=== PATIENT | female | born 1990 | race Caucasian/White ===

== ENCOUNTER → 2016-12-03 | Outpatient (CLI) | payer OTHER ==
[~2016-12-03] MED LIST: ACET50TA PO; PRENTAB40 PO; TYLE325T5 PO
--- NOTE | 2016-12-04 10:09 | REP ---
MRI LUMBAR SPINE WITHOUT CONTRAST: HISTORY: Low back pain bilateral leg pain, left greater than right. No known injury. Comparison radiographs September 30, 2016. TECHNIQUE: Sagittal and axial T1 and T2-weighted scans are acquired in the usual fashion with and without fat saturation. Sequences include spin echo, turbo spin-echo, and STIR imaging sequences. MRI FINDINGS: Lumbar vertebral body heights are preserved and alignment is normal. There is a small benign hemangioma in the L1 vertebral body, 9 mm in greatest diameter. Conus medullaris is normal in position and appearance at the T12-L1 disc level. Cortical and medullary bone signal intensity are otherwise normal. Disc spaces are maintained in height and signal intensity at all lumbar levels. No extra vertebral abnormality is appreciated. No disc herniation is seen at any lumbar level. No central canal stenosis is noted. No neural foraminal narrowing is seen. There is no evidence of spondylolysis or spondylolisthesis. IMPRESSION: Unremarkable MRI study of the lumbar spine. Signed by Jayce Hammond MD 12/04/2016 11:03 A
== END | disposition home or self-care (01) ==
LOC: M RAD 09:14
PROVIDERS: ATTEND Physician Assistant
DX: M54.5 Low back pain (principal)

== ENCOUNTER → 2017-01-04 | Outpatient (CLI) | payer OTHER ==
--- NOTE | 2017-01-04 19:08 | REP ---
AP AND LATERAL CERVICAL SPINE, THREE VIEWS: HISTORY: Injury. There is no acute fracture or subluxation. The intervertebral discs are normal in height. IMPRESSION: There is no acute fracture or subluxation. Signed by Jamey Felix MD 01/04/2017 07:16 P
== END ==
LOC: M ADAMS 16:19
PROVIDERS: ATTEND Physician Assistant
DX: S17.8XXA Crushing injury of other specified parts of neck, initial encounter (principal); W18.30XA Fall on same level, unspecified, initial encounter; Y92.009 Unspecified place in unspecified non-institutional (private) residence as the place of occurrence of the external cause

== ENCOUNTER → 2017-04-11 | Outpatient (REF) | payer OTHER ==
[2017-04-11 14:13] LABS: DIFF SLIDE NUMBER 307; MEAN CORPUSCULAR HEMOGLOBIN 31.6 pg (27.0-33.0); MEAN CORPUSCULAR HGB CONC 34.4 g/dl (32.0-36.5); MEAN CORPUSCULAR VOLUME 91.9 fl (80.0-96.0); PLATELET COUNT, AUTOMATED 204 k/mm3 (150-450); RED CELL DISTRIBUTION WIDTH 11.8 % (11.5-14.5); WHITE BLOOD COUNT 4.4 K/mm3 (4.0-10.0)
[2017-04-11 14:14] LABS: ANION GAP 7 MEQ/L (8-16); BLOOD UREA NITROGEN 10 MG/DL (7-18); CALCIUM LEVEL 8.7 MG/DL (8.5-10.1); CARBON DIOXIDE LEVEL 25 MEQ/L (21-32); CHLORIDE LEVEL 103 MEQ/L (98-107); GLOMERULAR FILTRATION RATE > 60.0 (>60); GLUCOSE, FASTING 102 MG/DL (70-105); POTASSIUM SERUM 3.6 MEQ/L (3.5-5.1); SODIUM LEVEL 135 MEQ/L (136-145)
[2017-04-11 14:36] LABS: BANDS 3 % (< 11); EOSINOPHILS 3 % (0-5)
[2017-04-11 14:37] LABS: ANISOCYTOSIS 1+
== END ==
LOC: M LAB REF 13:34
PROVIDERS: ATTEND Nurse Practitioner Family
DX: R51 Headache (principal)

== ENCOUNTER → 2017-04-18 | Outpatient (CLI) | payer OTHER | LOC: M RAD 16:00 | PROVIDERS: ATTEND Nurse Practitioner Family | DX: R51 Headache (principal) ==

== ENCOUNTER → 2018-01-01 | Outpatient (REF) | payer OTHER | LOC: M LAB REF 13:52 | DX: Z12.4 Encounter for screening for malignant neoplasm of cervix (principal) ==

== ENCOUNTER 2018-01-11 10:36 | Emergency (ER) | payer OTHER | END 2018-01-11 11:54 | disposition home or self-care (01) | LOC: M ED 10:36 | DX: H10.33 Unspecified acute conjunctivitis, bilateral (principal); J45.909 Unspecified asthma, uncomplicated; F17.200 Nicotine dependence, unspecified, uncomplicated; Z20.828 Contact with and (suspected) exposure to other viral communicable diseases; Z88.6 Allergy status to analgesic agent; Z88.8 Allergy status to other drugs, medicaments and biological substances; Z88.1 Allergy status to other antibiotic agents; Z88.0 Allergy status to penicillin; Z91.040 Latex allergy status; Z79.3 Long term (current) use of hormonal contraceptives | CPT/HCPCS: 99283 ==

== ENCOUNTER 2018-02-14 10:21 | Emergency (ER) | payer OTHER | END 2018-02-14 11:59 | disposition home or self-care (01) | LOC: M ED 10:21 | DX: S23.3XXA Sprain of ligaments of thoracic spine, initial encounter (principal); S23.41XA Sprain of ribs, initial encounter; W17.89XA Other fall from one level to another, initial encounter; Y92.89 Other specified places as the place of occurrence of the external cause; G57.01 Lesion of sciatic nerve, right lower limb; F17.200 Nicotine dependence, unspecified, uncomplicated; Z79.899 Other long term (current) drug therapy; Z88.8 Allergy status to other drugs, medicaments and biological substances; Z88.1 Allergy status to other antibiotic agents; Z91.040 Latex allergy status; Z88.0 Allergy status to penicillin | CPT/HCPCS: 71101 ==

== ENCOUNTER → 2018-03-22 | Outpatient (CLI) | payer MEDICAID | LOC: M RAD 13:06 | DX: M79.1 Myalgia (principal); M54.16 Radiculopathy, lumbar region; M47.817 Spondylosis without myelopathy or radiculopathy, lumbosacral region | CPT/HCPCS: 72148 ==

== ENCOUNTER 2018-04-19 12:35 | Emergency (ER) | payer MEDICAID | END 2018-04-19 14:36 | disposition home or self-care (01) | LOC: M ED 12:35 | DX: H69.92 Unspecified Eustachian tube disorder, left ear (principal); J45.909 Unspecified asthma, uncomplicated; M54.9 Dorsalgia, unspecified; F17.200 Nicotine dependence, unspecified, uncomplicated; Z88.6 Allergy status to analgesic agent; Z88.8 Allergy status to other drugs, medicaments and biological substances; Z88.1 Allergy status to other antibiotic agents; Z88.0 Allergy status to penicillin; Z91.040 Latex allergy status; Z79.899 Other long term (current) drug therapy; Z79.3 Long term (current) use of hormonal contraceptives | CPT/HCPCS: 99283 ==

== ENCOUNTER 2018-10-13 13:36 | Emergency (ER) | payer OTHER | END 2018-10-13 14:06 | disposition home or self-care (01) | LOC: M ED 13:36 | DX: M54.5 Low back pain (principal); V49.9XXA Car occupant (driver) (passenger) injured in unspecified traffic accident, initial encounter; Y92.410 Unspecified street and highway as the place of occurrence of the external cause; Y93.9 Activity, unspecified; Y99.9 Unspecified external cause status; R51 Headache; Z72.0 Tobacco use; Z79.899 Other long term (current) drug therapy; Z88.6 Allergy status to analgesic agent; Z88.8 Allergy status to other drugs, medicaments and biological substances; Z91.040 Latex allergy status; Z88.0 Allergy status to penicillin; Z88.1 Allergy status to other antibiotic agents | CPT/HCPCS: 99282 ==

== ENCOUNTER 2018-11-05 10:49 | Emergency (ER) | payer OTHER ==
[~2018-11-05] VITALS: Ht 162.6 cm; Wt 63.6 kg
[~2018-11-05 10:49] MED LIST changes: -ACET50TA PO; +CETI10TA PO; +CYCL10TA PO; +FLON1SPR NARES; +HYDR-3713 PO; +LEVO500T3 PO; +MAPA500T2 PO; +POLY2.5S OP; +ROBA500T PO; +SUMA25TA3 PO; +TIZA2TA PO; +TRINTAB; +ULTR50TA8 PO; +VENL37.598; +XULA1DIS
--- NOTE | 2018-11-05 12:47 | REP ---
EMERGENCY FIRST TRIMESTER OBSTETRIC SONOGRAPHY: HISTORY: Pelvic pain. Positive test. FINDINGS: Transabdominal and transvaginal scanning are performed. There is an intrauterine gestational sac containing a yolk sac but no identifiable embryonic pole. By mean sac size diameter of 9.5 mm, this would correspond with a 3-sjze-7-day gestational age estimate. Uterine dimensions are 9.0 x 4.8 x 5.3 cm. The right ovary is normal measuring 3.4 x 2.1 x 2.3 cm. Its Doppler flow is normal, resistive index is 0.58. Left ovary dimensions are 3.7 x 4.2 x 3.4 cm. It contains a 3.1 x 2.4 x 2.7 cm complex hypoechoic cyst consistent with a hemorrhagic corpus luteum. No free fluid is seen in the cul-de-sac. IMPRESSION: Intrauterine gestational sac contains a yolk sac but no identifiable embryonic pole. viability cannot be confirmed. Clinical and possibly sonographic followup suggested. 3.1 cm hypoechoic cyst left ovary. Electronically Signed by Jayce Hammond MD 11/05/2018 07:24 P
[2018-11-05] MEDS ORDERED: MACR100C43 PO (13:34)
[2018-11-05 13:40] VITALS: BP 100/55
== END 2018-11-05 13:41 | disposition home or self-care (01) ==
LOC: M ED 10:49
DX: O99.89 Other specified diseases and conditions complicating pregnancy, childbirth and the puerperium (principal); N83.202 Unspecified ovarian cyst, left side; Z3A.01 Less than 8 weeks gestation of pregnancy; J45.909 Unspecified asthma, uncomplicated; O23.91 Unspecified genitourinary tract infection in pregnancy, first trimester

== ENCOUNTER → 2018-11-27 | Outpatient (CLI) | payer OTHER ==
[~2018-11-27] MED LIST changes: +MACR100C43 PO
[2018-11-27 12:24] LABS: BASO % 0.5 % (0.0-1.0); EOS # 0.1 10^3/uL (0.0-0.50); EOS % 1.5 % (0.0-3.0); HEMOGLOBIN 11.9 g/dl (12.0-15.5); LYMPH # 1.4 10^3/uL (1.5-6.5); LYMPH % 22.9 % (24.0-44.0); MEAN CORPUSCULAR HEMOGLOBIN 30.3 pg (27.0-33.0); MEAN CORPUSCULAR HGB CONC 33.1 g/dl (32.0-36.5); MEAN CORPUSCULAR VOLUME 91.6 fl (80.0-96.0); MONO # 0.4 10^3/uL (0.0-0.8); MONO % 6.6 % (0.0-5.0); NEUTROPHILS # 4.2 10^3/uL (1.8-7.7); NEUTROPHILS % 68.2 % (36.0-66.0); PLATELET COUNT, AUTOMATED 221 10^3/uL (150-450); RED BLOOD COUNT 3.93 10^6/uL (4.00-5.40); WHITE BLOOD COUNT 6.2 10^3/uL (4.0-10.0)
[2018-11-27 14:36] LABS: CHLAMYDIA DNA AMPLIFICATION NEGATIVE (NEGATIVE); GC DNA AMPLIFICATION NEGATIVE (NEGATIVE)
[2018-11-28 11:31] LABS: HIV 1&2 SCREEN CENTAUR NEGATIVE (NEGATIVE); RUBELLA IgG QUALITATIVE IMMUNE (IMMUNE)
== END ==
LOC: M WUC 10:42
PROVIDERS: ATTEND Specialist
DX: Z34.81 Encounter for supervision of other normal pregnancy, first trimester (principal); Z3A.08 8 weeks gestation of pregnancy

== ENCOUNTER 2018-12-14 14:18 | Emergency (ER) | payer OTHER ==
[~2018-12-14] VITALS: Ht 162.6 cm; Wt 65.9 kg
[2018-12-14 14:19] VITALS: BP 117/64
[2018-12-14] MEDS ORDERED: ZOFR4TAB16 PO (14:23)
[2018-12-14] MEDS ORDERED: ACETAMINOPHEN 325 MG TAB PO ONE (14:45)
[2018-12-14] MEDS ORDERED: METOCLOPRAMIDE 10 MG TAB PO ONE (14:45)
[2018-12-14] MEDS ORDERED: REGL10TA6 PO (15:36)
== END 2018-12-14 15:45 | disposition home or self-care (01) ==
LOC: M ED 14:18
DX: R11.2 Nausea with vomiting, unspecified (principal); F17.210 Nicotine dependence, cigarettes, uncomplicated

== ENCOUNTER → 2019-02-05 | Outpatient (CLI) | payer OTHER ==
[~2019-02-05] MED LIST changes: +REGL10TA6 PO; +ZOFR4TAB16 PO
--- NOTE | 2019-02-06 04:31 | REP ---
Clinical: Anatomical evaluation. Comparison: 11/05/2018 . Findings: Examination demonstrates a single live intrauterine in breech presentation. motion is identified by technologist. Placenta is noted posterior and grade grade zero without evidence for placenta previa or abruption. Amniotic fluid volume is normal. Cervix measures 3.7 cm in length and appears closed. No evidence for nuchal cord. Gestational age by LMP 18 weeks 0 days with LUCÍA 07/09/2019 . Gestational age by current measurements 19 weeks 0 days with LUCÍA 07/02/2019 . FHR equals 160 beats per minute. BPD 4.0 cm 18 weeks 2 days HC 15.5 cm 18 weeks 3 days AC 14.5 cm 19 weeks 6 days FL 3.0 cm 19 weeks 1 day HL 2.9 cm 19 weeks 3 days HC/AC ratio 1.07 Estimated weight 288 grams (> 97 percentile based on age by LMP). Anatomical assessment demonstrates normal structures including cranium, choroid plexus, cavum, cerebellum/posterior fossa, facial features, lungs, four-chamber heart/ventricular outflow tracts, diaphragm, stomach, cord insertion/three-vessel cord, kidneys/bladder, spine, and extremities. Impression: 1. Single live intrauterine in breech presentation demonstrating estimated weight greater than expected based on age by LMP. 2. Anatomical assessment is complete and normal. Electronically Signed by Azam Almeida MD 02/06/2019 04:22 A
== END ==
LOC: M RAD 15:33
PROVIDERS: ATTEND Specialist
DX: Z34.82 Encounter for supervision of other normal pregnancy, second trimester (principal)

== ENCOUNTER 2019-06-30 07:56 | Inpatient (IN) | payer OTHER ==
[2019-06-30] VITALS (38 sets, daily range): BP systolic 99–129; BP diastolic 51–78
[~2019-06-30] VITALS: Ht 162.6 cm; Wt 81.7 kg
[2019-06-30] MEDS ORDERED: TUMS500C PO (08:23)
[2019-06-30 09:10] LABS: HEMATOCRIT 29.6 % (36.0-47.0); HEMOGLOBIN 9.7 g/dl (12.0-15.5); MEAN CORPUSCULAR HEMOGLOBIN 29.4 pg (27.0-33.0); MEAN CORPUSCULAR HGB CONC 32.8 g/dl (32.0-36.5); MEAN CORPUSCULAR VOLUME 89.7 fl (80.0-96.0); PLATELET COUNT, AUTOMATED 255 10^3/uL (150-450)
[2019-06-30] MEDS: miSOPROStol 50 MCG 1/2 TAB (S0191) SL SCH ×2 (09:23→13:27)
[2019-06-30] MEDS ORDERED: LACTATED RINGER'S 1000 ML IV ONE (17:30)
[2019-06-30] MEDS ORDERED: LR 1,000 ML IV SCH (17:30)
[2019-06-30] MEDS ORDERED: FENTANYL 2MCG/ML ROPIVACAINE 0.2% IN 0.9% NACL 100ML IVBAG As Ordered ONE (17:44)
[2019-06-30] MEDS ORDERED: NALOXONE INJ 0.4 MG/1 ML VIAL (J2310) IV PRN (19:45)
[2019-06-30] MEDS ORDERED: LACTATED RINGER'S 1000 ML IV PRN (19:45)
[2019-06-30] MEDS ORDERED: FENTANYL/ROPIVACAINE/NACL BAG 100 ML EPIDURAL SCH (19:45)
[2019-06-30] MEDS ORDERED: ePHEDrine SULFATE 25 MG/5 ML(5MG/ML) SYRINGE IV PRN (19:45)
[2019-06-30] MEDS ORDERED: EPIDURAL/PCA KEYS XX PRN (19:45)
[2019-06-30] MEDS ORDERED: ONDANSETRON 4MG/2ML VIAL (J2405) IV PRN (19:45)
[2019-06-30] MEDS ORDERED: EPIDURAL COMMENT XX SCH (19:45)
[2019-06-30] MEDS ORDERED: REFRIGERATOR IV KEYS XX PRN (19:45)
[2019-06-30] MEDS ORDERED: OXYTOCIN DRIP 30 UNITS in APPROPRIATE DILUENT 1 EA IV SCH (20:15)
[2019-06-30] MEDS ORDERED: ceFAZolin SOD 1 GM in D5W MINI-BAG PLUS 50 ML IV SCH (21:00)
[2019-07-01] VITALS (7 sets, daily range): BP systolic 99–118; BP diastolic 57–70
[2019-07-01] MEDS ORDERED: METHYLERGONOVINE MALEATE 0.2 MG TAB PO PRN (00:15)
[2019-07-01] MEDS ORDERED: DOCUSATE SODIUM 100 MG CAP PO PRN (00:15)
[2019-07-01] MEDS ORDERED: ACETAMINOPHEN TAB 650MG DOSE (2X325MG) PO PRN (00:15)
[2019-07-01] MEDS ORDERED: RHOGAM 300 MCG (1500 IU) INJ (J2790) IM SCH (00:15)
[2019-07-01] MEDS ORDERED: ONDANSETRON 4MG/2ML VIAL (J2405) IV PRN (00:15)
[2019-07-01] MEDS ORDERED: MEASLES,MUMPS,RUBELLA VACCINE INJ (MMR-II) (90707) SC SCH (00:15)
[2019-07-01] MEDS ORDERED: OXYTOCIN DRIP 30 UNITS in APPROPRIATE DILUENT 1 EA IV ONE (00:15)
[2019-07-01] MEDS ORDERED: DIBUCAINE 1% OINTMENT 30GM TOP PRN (00:15)
[2019-07-01] MEDS: ACETAMINOPHEN 500 MG TAB PO PRN ×3 (01:19→19:49)
--- NOTE | 2019-07-01 07:02 | IPNPDOC ---
Text Note Date of Service The patient was seen on 07/01/19. NOTE Day 1 s/p ; uncomplicated S: Pain well controlled, lochia and bleeding decreasing, voiding spontaneously, ambulating without assistance, tolerating regular diet.Formula feeding. O: vitals stable Heart: RRR Lungs: CTA BL Abd: Fundus at U-1 and firm Ext: lower extremity edema decreasing, nontender, Anastasiia's negative bilaterally A/P: 29 yo G4 now P4. day 1 s/p . Hemodynamically stable, afebrile, good pain control. Recovering well. -Routine care and advancement -Anticipate discharge tomorrow VS,Fishbone, I+O VS, Fishbone, I+O Laboratory Tests 06/30/19 08:55 Red Blood Count 3.30 L, Mean Corpuscular Volume 89.7, Mean Corpuscular Hemoglobin 29.4, Mean Corpuscular Hemoglobin Concent 32.8, Red Cell Distribution Width 13.6 Vital Signs Date Time Temp Pulse Resp B/P (MAP) Pulse Ox O2 Delivery O2 Flow Rate FiO2 07/01/19 05:53 97.6 66 18 118/60 (79) 06/30/19 19:04 98 I&O- Last 24 Hours up to 6 AM 07/01/19 06:00 Intake Total 5600 ml Output Total 2425 ml Balance 3175 ml GME ATTESTATION GME ATTESTATION My faculty preceptor for this patient encounter was physically present during the encounter and was fully available. All aspects of the patient interview, examination, medical decision making process, and medical care plan development were reviewed and approved by the faculty preceptor. The faculty preceptor is aware and concurs with the plan as stated in the body of this note and will attest to such by his/her cosignature. TON HURLEY DO Jul 01, 2019 07:02
[2019-07-01] MEDS: PRENATAL VITAMINS CHEWABLE TABLET PO SCH (07:54)
--- NOTE | 2019-07-01 08:51 | DN ---
DATE OF DELIVERY: 06/30/2019 PREDELIVERY DIAGNOSIS: 39 weeks induction. POSTDELIVERY DIAGNOSIS: Delivered. PROCEDURE: Spontaneous vaginal delivery. PLODDER OPERATOR: Dr. Jamey Paz ANESTHESIA: Epidural. ESTIMATED BLOOD LOSS: 300 mL. FINDINGS: 9 pounds 7 ounce, 4290 gram male . scores 8 and 9. DELIVERY SUMMARY: After a 5 minute second stage the patient spontaneously delivered a 9 pound 7 ounce male with scores of 8 and 9 under epidural anesthesia. Nuchal cord was reduced. The shoulders delivered with ease. The infant was handed to the mother. The cord was doubly clamped and cut. The placenta delivered spontaneously and appeared to be intact. The patient received IV Pitocin immediately after delivery of the placenta. A second degree perineal laceration was repaired with 2-0 Chromic in the usual fashion. Sponge counts were correct.
[2019-07-02 06:10] VITALS: BP 109/61
[2019-07-02] MEDS: PRENATAL VITAMINS CHEWABLE TABLET PO SCH (08:09)
[2019-07-02] MEDS ORDERED: ADACEL/BOOSTRIX VACCINE (DIPHTH/PERTUSS/ACELL/TETANUS)0.5ML SYR (90715) IM ONE (09:00)
== END 2019-07-02 13:40 | disposition home or self-care (01) | DRG 560 ==
LOC: M LDI 07:56 → M OBS 07-01 02:10
PROVIDERS: ADMIT Specialist; ATTEND Specialist
PROC: 10E0XZZ Delivery of Products of Conception, External Approach (ICD-10-PCS; principal; 2019-06-30)
PROC: 0KQM0ZZ Repair Perineum Muscle, Open Approach (ICD-10-PCS; 2019-06-30)
PROC: 3E0P7GC Introduction of Other Therapeutic Substance into Female Reproductive, Via Natural or Artificial Opening (ICD-10-PCS; 2019-06-30)
DX: O99.334 Smoking (tobacco) complicating childbirth (principal); Z3A.39 39 weeks gestation of pregnancy; Z37.0 Single live birth; O69.81X0 Labor and delivery complicated by cord around neck, without compression, not applicable or unspecified; O70.1 Second degree perineal laceration during delivery; F17.210 Nicotine dependence, cigarettes, uncomplicated

== ENCOUNTER 2020-01-04 21:01 | Emergency (ER) | payer OTHER ==
[~2020-01-04] VITALS: Ht 162.6 cm; Wt 71.9 kg
[~2020-01-04 21:01] MED LIST changes: +TUMS500C PO
[2020-01-04] MEDS ORDERED: ACETAMINOPHEN 325 MG TAB PO ONE (22:30)
[2020-01-04 23:19] VITALS: BP 112/63
--- NOTE | 2020-01-05 08:16 | REP ---
Sacrum and coccyx: Three views. History: Injury in a fall down stairs. Findings: No sacral or coccygeal fracture or displacement is seen. Presacral soft tissues are not widened. Visualized lumbar discs are unremarkable. SI joints are intact. Impression: No traumatic abnormality noted. Electronically Signed by Jayce Hammond MD 01/05/2020 08:08 A
--- NOTE | 2020-01-05 08:19 | REP ---
Lumbar spine series: Five views. History: Injury in a fall down stairs. Comparison study: September 30, 2016. Findings: Lumbar vertebral body heights are preserved and alignment is normal. Disc spaces are maintained. No fracture or collapse is seen. Pedicles and posterior elements are intact. There is no evidence of spondylolysis or spondylolisthesis. Psoas margins are symmetric. Sacrum and SI joints are unremarkable. Impression: Negative radiographs of the lumbar spine. Electronically Signed by Jayce Hammond MD 01/05/2020 08:10 A
--- NOTE | 2020-01-05 08:21 | REP ---
Right elbow: Four views. History: Injury in a fall down stairs. Findings: Four views right elbow demonstrate normal bones, joints, and soft tissues. No fracture or subluxation is seen. Impression: No fracture noted. Electronically Signed by Jayce Hammond MD 01/05/2020 08:13 A
== END 2020-01-04 23:30 | disposition home or self-care (01) ==
LOC: M ED 21:01
DX: S30.0XXA Contusion of lower back and pelvis, initial encounter (principal); S50.01XA Contusion of right elbow, initial encounter; S40.012A Contusion of left shoulder, initial encounter; S93.421A Sprain of deltoid ligament of right ankle, initial encounter; W10.8XXA Fall (on) (from) other stairs and steps, initial encounter; Y92.018 Other place in single-family (private) house as the place of occurrence of the external cause; J45.909 Unspecified asthma, uncomplicated; F33.9 Major depressive disorder, recurrent, unspecified; F41.9 Anxiety disorder, unspecified; Z79.3 Long term (current) use of hormonal contraceptives; Z88.0 Allergy status to penicillin; Z88.1 Allergy status to other antibiotic agents; Z88.8 Allergy status to other drugs, medicaments and biological substances; Z91.040 Latex allergy status; F17.210 Nicotine dependence, cigarettes, uncomplicated